=== PATIENT | female | born 1935 | race African-American/Black ===

== ENCOUNTER → 2019-10-26 | Outpatient (CLI) | payer MEDICARE, OTHER ==
--- NOTE | 2019-10-26 15:14 | RAD ---
MR#: [id number] Date of Study: 10/26/2019 Ordering Physician: PRINCESS GALLOWAY, Referring Physician: YANETH CRANE Tech: RT Chanda (Joon) (N) APPROVED REPORT Test Type: Exercise Stress Nurse/Tech: SHARMILA Nelson Test Indications: abnormal EKG Cardiac History: See Electronic Medical Record Medications: See Electronic Medical Record Medical History: See Electronic Medical Record Resting ECG: SR Resting Heart Rate: 62 bpm Resting Blood Pressure: 126/72mmHg Pretest Chest Pain: No chest pain Nurse/Tech Notes S1S2, lungs CTA, denied chest pain or SOA. Consent: The procedure was explained to the patient in lay terms. Informed consent was witnessed. Arnold eout was entered into [employer]. History and Stress Test performed by RT Chanda (R) (N) Stress Symptoms Denied chest pain or SOA during treadmill test. Vitals WNL. POST EXERCISE Reason for Termination: Reached target heart rate Target HR: 118 Max HR: 120 bpm Exercise duration: 4:45 min:sec, 2 Stage Exercise capacity: 4.9METs Max Blood Pressure: 166/68mmHg Blood Pressure response to exercise: Normal blood pressure response during stress. Heart Rate response to exercise: Normal response during exercise Chest Pain: No. Arrhythmia: No. ST Change: . abnormal T in V4 INTERPRETATION Stress EKG Conclusion: SR with non-specific ST/T changes. Imaging Protocol IMAGE PROTOCOL: Rest Tc-99m/stress Tc-99m 1 day Rest: Stress: Viability: Radiopharm.Tc99m PowbzunlfKh79p Sestamibi Qhaj23gMp 29mCi Duration 13min. 13min. Img Date 10/26/2019 10/26/2019 Inj-Img Tkbh44pfl. 45min. Post-Injection Exercise: 1 minute Rest Admin Site:IV - Left HandAdministrator:RT Alyssa (Joon)(N) Stress Admin Site: IV - Left HandAdministrator: RT Chanda (Joon)(N) STRESS DATA End Diast. Vol.73.0mlLVEDV index BSA38.0ml End Syst. Vol.15.0mlLVESV index BSA8.0ml Myocardial Hxsu593.0gEject. Tceolucn12.0% Stress Scores Regional WT0.00Summed WT0.00 Regional WM0.00Summed WM0.00 The rest and stress images show normal perfusion, normal contraction and thickening. LV Perf. Quant 17 Seg. SSS0.00 17 Seg. SRS0.00 17 Seg. SDS0.00 Stress Defect Extent (% LAD)0.00Rest Defect Extent (% LAD)0.00Rev. Defect Extent (% LAD)0.00 Stress Defect Extent (% LCX) 0.00Rest Defect Extent (% LCX)0.00Rev. Defect Extent (% LCX)0.00 Stress Defect Extent (% RCA)0.00Rest Defect Extent (% RCA)0.00Rev. Defect Extent (% RCA)0.00 Stress Defect Extent (% RAVINDER)0.00Rest Defect Extent (% RAVINDER)0.00Rev. Defect Extent (% RAVINDER)0.00 Other Information Quality:Good Risk Assessment: Low Risk Conclusion 1. No evidence of EKG changes with stress testing. 2. Normal perfusion at stress/rest. 3. Low risk study. 4. EF > 60%. Signed by : Celestino Dang, Electronically Approved : 10/26/2019 15:13:44
== END | disposition home or self-care (01) ==
LOC: NM 09:14
PROVIDERS: ATTEND Internal Medicine Cardiovascular Disease
DX: R94.31 Abnormal electrocardiogram [ECG] [EKG] (principal)
CPT/HCPCS: 78452; 93017; A9500

== ENCOUNTER → 2019-10-26 | Outpatient (CLI) | payer MEDICARE, OTHER ==
--- NOTE | 2019-10-26 15:19 | RAD ---
LOWER EXTREMITY DUPLEX ARTERY ULTRASOUND Indication: Poor circulation of extremity Comparison: None. Procedure: Arterial 2D and duplex images are obtained of the lower extremity arteries. Findings: Normal triphasic waveforms are present in the common femoral artery, superficial femoral artery, popliteal artery, anterior tibial artery, posterior tibial artery and dorsalis pedis artery. IMPRESSION: No hemodynamically significant stenosis. Electronically signed by: Melani Harmon MD (10/26/2019 3:16 PM) [facility]
== END | disposition home or self-care (01) ==
LOC: US 10:06
PROVIDERS: ATTEND Family Medicine
DX: R09.89 Other specified symptoms and signs involving the circulatory and respiratory systems (principal)
CPT/HCPCS: 93925